=== PATIENT | female | born 1995 | race Caucasian/White ===

== ENCOUNTER → 2021-07-29 | Day surgery (SDC) | payer BC ==
[~2021-07-29] MED LIST: PRENATAL 19 CH1 EAC1 PO
[2021-07-29 06:36] LABS: HEMOGLOBIN 14.5 gm/dl (12.3-15.3); RED BLOOD COUNT 4.73 M/UL (4.00-5.10); WHITE BLOOD COUNT 4.9 K/UL (4.5-11.0)
== END | disposition home or self-care (01) ==
LOC: OR 05:25
PROVIDERS: Obstetrics & Gynecology
DX: O02.1 Missed abortion (principal); F41.9 Anxiety disorder, unspecified; Z20.822 Contact with and (suspected) exposure to COVID-19; Z88.1 Allergy status to other antibiotic agents; Z79.899 Other long term (current) drug therapy; Z80.41 Family history of malignant neoplasm of ovary; Z80.49 Family history of malignant neoplasm of other genital organs
CPT/HCPCS: 81001; 85025; J1100; J1885; J2001; J2250; J2405; J2704; J3010; J7120; U0002